=== PATIENT | female | born 1960 | race Hispanic/Latino ===

== ENCOUNTER 2019-08-19 01:29 | Emergency (ER) | payer OTHER ==
[~2019-08-19] VITALS: Ht 157.5 cm; Wt 65.8 kg
--- OUTSIDE RECORDS SUMMARY | 2019-08-19 01:32 | XMS REPORT ---
Author Author [facility] Address Unknown Phone Unavailable Care Team Providers Care Inspector Toys Name Role Phone Unavailable Unavailable Payers Payer Name Policy Type Policy Number Effective Date Expiration Date Problems This patient has no known problems. Allergies, Adverse Reactions, Alerts Allergy Name Allergy Type Status Severity Reaction(s) Onset Date Inactive Date Treating Clinician Comments morphine DA Active [place] 2018-10-20 00:00:00 ANTIBIOTIC DA Active [place] 2018-10-20 00:00:00 ANXIETY MEDICATION DA Active [place] 2018-10-20 00:00:00 No Known Allergies DA Active U 2016-09-27 00:00:00 Medications This patient has no known medications. Encounters Start Date/Time End Date/Time Encounter Type Admission Type Attending Clinicians Care Facility Care Department Encounter ID 2017-05-23 14:27:36 Inpatient [facility] [id number] 2018-05-26 00:00:00 2018-05-26 00:00:00 Outpatient [facility] [id number] 2018-05-20 00:00:00 2018-05-20 00:00:00 Outpatient [facility] [id number] 2018-04-28 00:00:00 2018-04-28 00:00:00 Outpatient [facility] [id number] 2018-03-30 00:00:00 2018-03-30 00:00:00 Outpatient [facility] [id number] 2018-03-24 00:00:00 2018-03-24 00:00:00 Outpatient [facility] [id number] 2018-03-04 00:00:00 2018-03-04 00:00:00 Outpatient [facility] [id number] 2018-02-25 11:11:28 2018-02-25 11:11:28 Outpatient [facility] [id number] 2018-02-25 11:09:54 2018-02-25 11:09:54 Outpatient [facility] [id number] 2018-02-05 00:00:00 2018-02-05 00:00:00 Outpatient [facility] [id number] 2018-02-02 00:00:00 2018-02-02 00:00:00 Outpatient [facility] [id number] 2018-01-05 00:00:00 2018-01-05 00:00:00 Outpatient [facility] [id number] 2017-12-28 12:52:59 2017-12-28 12:52:59 Outpatient [facility] [id number] 2017-12-10 13:54:39 2017-12-10 13:54:39 Outpatient [facility] [id number] 2017-12-09 13:20:08 2017-12-09 13:20:08 Outpatient [facility] [id number] 2017-12-08 00:00:00 2017-12-08 00:00:00 Outpatient [facility] [id number] 2017-12-03 00:00:00 2017-12-03 00:00:00 Outpatient [facility] [id number] 2017-11-23 12:11:51 2017-11-23 12:11:51 Outpatient [facility] [id number] 2017-11-23 00:00:00 2017-11-23 00:00:00 Outpatient [facility] [id number] 2017-10-31 00:00:00 2017-10-31 00:00:00 Outpatient [facility] [id number] 2017-10-29 14:36:02 2017-10-29 14:36:02 Outpatient [facility] [id number] 2017-10-29 13:05:56 2017-10-29 13:05:56 Outpatient [facility] [id number] 2017-10-16 14:44:04 2017-10-16 14:44:04 Outpatient [facility] [id number] 2017-10-15 00:00:00 2017-10-15 00:00:00 Outpatient [facility] [id number] 2017-10-15 00:00:00 2017-10-15 00:00:00 Outpatient [facility] [id number] 2017-10-07 13:42:00 2017-10-07 13:42:00 Outpatient [facility] [id number] 2017-09-09 00:00:00 2017-09-09 00:00:00 Outpatient [facility] [id number] 2017-09-09 00:00:00 2017-09-09 00:00:00 Outpatient [facility] [id number] 2017-09-03 16:56:16 2017-09-03 16:56:16 Outpatient [facility] [id number] 2017-09-03 14:18:12 2017-09-03 14:18:12 Outpatient [facility] [id number] 2017-09-03 13:24:46 2017-09-03 13:24:46 Outpatient [facility] [id number] 2017-09-03 00:00:00 2017-09-03 00:00:00 Outpatient [facility] [id number] 2017-08-31 00:00:00 2017-08-31 00:00:00 Outpatient [facility] [id number] 2017-08-27 12:02:21 2017-08-27 12:02:21 Outpatient [facility] [id number] 2017-08-27 00:00:00 2017-08-27 00:00:00 Outpatient [facility] [id number] 2017-08-24 13:20:59 2017-08-24 13:20:59 Outpatient [facility] [id number] 2017-08-20 00:00:00 2017-08-20 00:00:00 Outpatient [facility] [id number] 2017-08-17 00:00:00 2017-08-17 00:00:00 Outpatient [facility] [id number] 2017-08-14 13:11:49 2017-08-14 13:11:49 Outpatient [facility] [id number] 2017-08-13 00:00:00 2017-08-13 00:00:00 Outpatient [facility] [id number] 2017-08-12 00:00:00 2017-08-12 00:00:00 Outpatient [facility] [id number] 2017-08-05 13:42:36 2017-08-05 13:42:36 Outpatient [facility] [id number] 2017-07-31 00:00:00 2017-07-31 00:00:00 Outpatient [facility] [id number] 2017-07-23 14:17:03 2017-07-23 14:17:03 Outpatient [facility] [id number] 2017-07-23 13:42:44 2017-07-23 13:42:44 Outpatient [facility] [id number] 2017-07-16 15:28:58 2017-07-16 15:28:58 Outpatient [facility] [id number] 2017-07-16 14:46:22 2017-07-16 14:46:22 Outpatient [facility] [id number] 2017-07-16 13:39:17 2017-07-16 13:39:17 Outpatient [facility] [id number] 2017-07-16 00:00:00 2017-07-16 00:00:00 Outpatient [facility] [id number] 2017-07-16 00:00:00 2017-07-16 00:00:00 Outpatient [facility] [id number] 2017-07-10 15:48:25 2017-07-10 15:48:25 Outpatient [facility] [id number] 2017-07-10 14:56:29 2017-07-10 14:56:29 Outpatient [facility] [id number] 2017-06-26 10:54:16 2017-06-26 10:54:16 Outpatient [facility] [id number] 2017-06-19 05:39:49 2017-06-19 05:39:49 Emergency [facility] [id number] 2017-06-18 21:50:25 2017-06-18 21:50:25 Emergency [facility] [id number] 2017-06-16 00:00:00 2017-06-16 00:00:00 Outpatient [facility] [id number] 2017-06-02 11:44:01 2017-06-02 11:44:01 Outpatient [facility] [id number] 2017-05-22 14:18:41 2017-05-22 14:18:41 Outpatient [facility] [id number] 2017-05-22 00:00:00 2017-05-22 00:00:00 Outpatient [facility] [id number] 2017-05-21 00:00:00 2017-05-21 00:00:00 Outpatient [facility] [id number] 2017-05-19 00:00:00 2017-05-19 00:00:00 Outpatient [facility] [id number] 2017-05-18 09:32:35 2017-05-18 09:32:35 Outpatient [facility] [id number] 2017-05-18 08:44:35 2017-05-18 08:44:35 Outpatient [facility] [id number] 2017-05-05 00:00:00 2017-05-05 00:00:00 Outpatient [facility] [id number] 2017-04-30 13:26:56 2017-04-30 13:26:56 Outpatient [facility] [id number] 2017-04-23 00:00:00 2017-04-23 00:00:00 Outpatient [facility] [id number] 2017-04-16 12:59:36 2017-04-16 12:59:36 Outpatient [facility] [id number] 2017-04-16 11:15:13 2017-04-16 11:15:13 Outpatient [facility] [id number] 2017-04-16 11:07:32 2017-04-16 11:07:32 Outpatient [facility] [id number] 2017-04-14 00:00:00 2017-04-14 00:00:00 Outpatient [facility] [id number] 2017-04-14 00:00:00 2017-04-14 00:00:00 Outpatient [facility] [id number] 2017-04-02 13:17:17 2017-04-02 13:17:17 Outpatient [facility] [id number] 2017-03-20 13:01:32 2017-03-20 13:01:32 Outpatient [facility] [id number] 2017-03-19 13:08:53 2017-03-19 13:08:53 Outpatient [facility] [id number] 2017-03-19 12:19:02 2017-03-19 12:19:02 Outpatient [facility] [id number] 2017-03-19 10:09:48 2017-03-19 10:09:48 Outpatient [facility] [id number] 2017-03-19 00:00:00 2017-03-19 00:00:00 Outpatient [facility] [id number] 2017-03-18 14:17:32 2017-03-18 14:17:32 Outpatient [facility] [id number] 2017-03-17 00:00:00 2017-03-17 00:00:00 Outpatient [facility] [id number] 2017-03-04 00:00:00 2017-03-04 00:00:00 Outpatient [facility] [id number] 2017-02-25 00:00:00 2017-02-25 00:00:00 Outpatient [facility] [id number] 2017-02-24 00:00:00 2017-02-24 00:00:00 Outpatient [facility] [id number] 2017-02-19 16:02:51 2017-02-19 16:02:51 Outpatient [facility] [id number] 2017-02-19 14:45:04 2017-02-19 14:45:04 Outpatient [facility] [id number] 2017-02-19 13:21:06 2017-02-19 13:21:06 Outpatient [facility] [id number] 2017-02-12 13:26:06 2017-02-12 13:26:06 Outpatient [facility] [id number] 2017-02-09 09:07:09 2017-02-09 09:07:09 Outpatient [facility] [id number] 2017-02-05 00:00:00 2017-02-05 00:00:00 Outpatient [facility] [id number] 2017-02-03 14:06:43 2017-02-03 14:06:43 Outpatient [facility] [id number] 2017-01-29 08:08:16 2017-01-29 08:08:16 Outpatient [facility] [id number] 2017-01-26 09:51:53 2017-01-26 09:51:53 Outpatient [facility] [id number] 2017-01-16 14:30:20 2017-01-16 00:00:00 Inpatient [facility] [id number] 2017-01-12 14:37:40 2017-01-12 14:37:40 Inpatient [facility] [id number] 2017-01-12 00:00:00 2017-01-12 00:00:00 Outpatient [facility] [id number] 2017-01-08 13:33:08 2017-01-08 13:33:08 Outpatient [facility] [id number] 2017-01-01 00:00:00 2017-01-01 00:00:00 Outpatient [facility] [id number] 2016-12-31 11:40:24 2016-12-31 11:40:24 Outpatient [facility] [id number] 2016-12-31 00:00:00 2016-12-31 00:00:00 Outpatient [facility] [id number] 2016-12-31 00:00:00 2016-12-31 00:00:00 Outpatient [facility] [id number] 2016-12-30 10:09:18 2016-12-30 10:09:18 Outpatient [facility] [id number] 2016-12-30 09:21:27 2016-12-30 09:21:27 Outpatient [facility] [id number] 2016-12-30 00:00:00 2016-12-30 00:00:00 Outpatient [facility] [id number] 2016-12-26 00:00:00 2016-12-26 00:00:00 Outpatient [facility] [id number] 2016-12-22 13:27:17 2016-12-22 13:27:17 Outpatient [facility] [id number] 2016-12-19 15:01:05 2016-12-19 15:01:05 Outpatient [facility] [id number] 2016-12-19 13:59:00 2016-12-19 13:59:00 Outpatient [facility] [id number] 2016-12-19 00:00:00 2016-12-19 00:00:00 Outpatient [facility] [id number] 2016-12-02 14:19:16 2016-12-02 14:19:16 Outpatient [facility] [id number] 2016-11-27 16:19:33 2016-11-27 16:19:33 Outpatient [facility] [id number] 2016-11-27 14:45:14 2016-11-27 14:45:14 Outpatient [facility] [id number] 2016-11-21 00:00:00 2016-11-21 00:00:00 Outpatient [facility] [id number] 2016-11-20 08:43:28 2016-11-20 08:43:28 Outpatient [facility] [id number] Results Test Description Test Time Test Comments Text Results Atomic Results Result Comments BASIC METABOLIC PANEL 2019-01-24 14:45:00 SODIUM (test code=NA) 143 mmol/L 136-145 POTASSIUM (test code=K) 3.8 mmol/L 3.5-5.1 CHLORIDE (test code=CL) 110.0 mmol/L 98-107 CARBON DIOXIDE (test code=CO2) 27.0 mmol/L 21-32 ANION GAP (test code=GAP) 9.8 10-20 GLUCOSE (test code=GLU) 92 mg/dL 74-106 BLOOD UREA NITROGEN (test code=BUN) 10 mg/dL 7-18 GLOMERULAR FILTRATION RATE (test code=GFR) > 60 mL/min >=60 Estimated GFR by using Modified MDRD formula.Chronic kidney disease is defined as either kidney damageor GFR <60 mL/min/1.73 m2 for >3 months. CREATININE (test code=CREAT) 0.70 mg/dL 0.55-1.02 Note change in reference range due to change in reagent. BUN/CREATININE RATIO (test code=BUN/CREA) 14.3 10-20 CALCIUM (test code=CA) 8.8 mg/dL 8.5-10.1 BASIC METABOLIC [id number] 14:25:00* Test Item Value Reference Range Comments SODIUM (test code=NA) 143 mmol/L 136-145 POTASSIUM (test code=K) 3.8 mmol/L 3.5-5.1 CHLORIDE (test code=CL) 110.0 mmol/L 98-107 CARBON DIOXIDE (test code=CO2) mmol/L 21-32 ANION GAP (test code=GAP) 10-20 GLUCOSE (test code=GLU) mg/dL 74-106 BLOOD UREA NITROGEN (test code=BUN) mg/dL 7-18 GLOMERULAR FILTRATION RATE (test code=GFR) mL/min >=60 CREATININE (test code=CREAT) mg/dL 0.55-1.02 BUN/CREATININE RATIO (test code=BUN/CREA) 10-20 CALCIUM (test code=CA) 8.8 mg/dL 8.5-10.1 CBC W/AUTO [id number] 13:46:00* Test Item Value Reference Range Comments WHITE BLOOD CELL (test code=WBC) 6.9 K/mm3 4.5-12.5 RED BLOOD CELL (test code=RBC) 3.84 mill/mm3 3.7-5.2 HEMOGLOBIN (test code=HGB) 11.4 gram/dL 11.5-15.5 HEMATOCRIT (test code=HCT) 35.9 % 36.0-46.0 MEAN CELL VOLUME (test code=MCV) 93.5 fL 80-98 MEAN CELL HGB (test code=MCH) 29.7 picogram 27.0-33.0 MEAN CELL HGB CONCETRATION (test code=MCHC) 31.8 gram/dL 33.0-36.0 RED CELL DISTRIBUTION WIDTH (test code=RDW) 12.8 % 11.6-16.2 RED CELL DISTRIBUTION WIDTH SD (test code=RDW-SD) 43.8 fL 37.0-51.0 PLATELET COUNT (test code=PLT) 278 K/mm3 150-450 MEAN PLATELET VOLUME (test code=MPV) 9.9 fL 6.7-11.0 NEUTROPHIL % (test code=NT%) 67.3 % 39.0-69.0 IMMATURE GRANULOCYTE % (test code=IG%) 1.2 % 0.0-5.0 LYMPHOCYTE % (test code=LY%) 21.0 % 25.0-55.0 MONOCYTE % (test code=MO%) 8.0 % 0.0-10.0 EOSINOPHIL % (test code=EO%) 2.2 % 0.0-5.0 BASOPHIL % (test code=BA%) 0.3 % 0.0-1.0 NUCLEATED RBC % (test code=NRBC%) 0.0 % 0-0 NEUTROPHIL # (test code=NT#) 4.64 K/mm3 1.8-7.7 IMMATURE GRANULOCYTE # (test code=IG#) 0.08 x10 3/uL 0-0.03 LYMPHOCYTE # (test code=LY#) 1.45 K/mm3 1.0-5.0 MONOCYTE # (test code=MO#) 0.55 K/mm3 0-0.8 EOSINOPHIL # (test code=EO#) 0.15 K/mm3 0.0-0.5 BASOPHIL # (test code=BA#) 0.02 K/mm3 0.0-0.2 NUCLEATED RBC # (test code=NRBC#) 0.00 K/mm3 0.0-0.1 BASIC METABOLIC [id number] 12:24:00* Test Item Value Reference Range Comments SODIUM (test code=NA) 144 mmol/L 136-145 POTASSIUM (test code=K) 3.9 mmol/L 3.5-5.1 CHLORIDE (test code=CL) 109.0 mmol/L 98-107 CARBON DIOXIDE (test code=CO2) 29.0 mmol/L 21-32 ANION GAP (test code=GAP) 9.9 10-20 GLUCOSE (test code=GLU) 83 mg/dL 74-106 BLOOD UREA NITROGEN (test code=BUN) 16 mg/dL 7-18 GLOMERULAR FILTRATION RATE (test code=GFR) > 60 mL/min >=60 Estimated GFR by using Modified MDRD formula.Chronic kidney disease is defined as either kidney damageor GFR <60 mL/min/1.73 m2 for >3 months. CREATININE (test code=CREAT) 0.70 mg/dL 0.55-1.02 Note change in reference range due to change in reagent. BUN/CREATININE RATIO (test code=BUN/CREA) 22.9 10-20 CALCIUM (test code=CA) 8.6 mg/dL 8.5-10.1 BASIC METABOLIC [id number] 12:09:00* Test Item Value Reference Range Comments SODIUM (test code=NA) 144 mmol/L 136-145 POTASSIUM (test code=K) 3.9 mmol/L 3.5-5.1 CHLORIDE (test code=CL) 109.0 mmol/L 98-107 CARBON DIOXIDE (test code=CO2) mmol/L 21-32 ANION GAP (test code=GAP) 10-20 GLUCOSE (test code=GLU) mg/dL 74-106 BLOOD UREA NITROGEN (test code=BUN) mg/dL 7-18 GLOMERULAR FILTRATION RATE (test code=GFR) mL/min >=60 CREATININE (test code=CREAT) mg/dL 0.55-1.02 BUN/CREATININE RATIO (test code=BUN/CREA) 10-20 CALCIUM (test code=CA) mg/dL 8.5-10.1 BASIC METABOLIC [id number] 12:39:00* Test Item Value Reference Range Comments SODIUM (test code=NA) 145 mmol/L 136-145 POTASSIUM (test code=K) 3.6 mmol/L 3.5-5.1 CHLORIDE (test code=CL) 112.0 mmol/L 98-107 CARBON DIOXIDE (test code=CO2) 28.0 mmol/L 21-32 ANION GAP (test code=GAP) 8.6 10-20 GLUCOSE (test code=GLU) 85 mg/dL 74-106 BLOOD UREA NITROGEN (test code=BUN) 17 mg/dL 7-18 GLOMERULAR FILTRATION RATE (test code=GFR) > 60 mL/min >=60 Estimated GFR by using Modified MDRD formula.Chronic kidney disease is defined as either kidney damageor GFR <60 mL/min/1.73 m2 for >3 months. CREATININE (test code=CREAT) 0.70 mg/dL 0.55-1.02 Note change in reference range due to change in reagent. BUN/CREATININE RATIO (test code=BUN/CREA) 24.3 10-20 CALCIUM (test code=CA) 8.0 mg/dL 8.5-10.1 CBC W/AUTO [id number] 12:19:00* Test Item Value Reference Range Comments WHITE BLOOD CELL (test code=WBC) 5.8 K/mm3 4.5-12.5 RED BLOOD CELL (test code=RBC) 3.59 mill/mm3 3.7-5.2 HEMOGLOBIN (test code=HGB) 10.8 gram/dL 11.5-15.5 HEMATOCRIT (test code=HCT) 35.0 % 36.0-46.0 MEAN CELL VOLUME (test code=MCV) 97.5 fL 80-98 MEAN CELL HGB (test code=MCH) 30.1 picogram 27.0-33.0 MEAN CELL HGB CONCETRATION (test code=MCHC) 30.9 gram/dL 33.0-36.0 RED CELL DISTRIBUTION WIDTH (test code=RDW) 12.7 % 11.6-16.2 RED CELL DISTRIBUTION WIDTH SD (test code=RDW-SD) 45.5 fL 37.0-51.0 PLATELET COUNT (test code=PLT) 260 K/mm3 150-450 MEAN PLATELET VOLUME (test code=MPV) 10.3 fL 6.7-11.0 NEUTROPHIL % (test code=NT%) 61.5 % 39.0-69.0 IMMATURE GRANULOCYTE % (test code=IG%) 1.2 % 0.0-5.0 LYMPHOCYTE % (test code=LY%) 24.0 % 25.0-55.0 MONOCYTE % (test code=MO%) 8.8 % 0.0-10.0 EOSINOPHIL % (test code=EO%) 4.0 % 0.0-5.0 BASOPHIL % (test code=BA%) 0.5 % 0.0-1.0 NUCLEATED RBC % (test code=NRBC%) 0.0 % 0-0 NEUTROPHIL # (test code=NT#) 3.56 K/mm3 1.8-7.7 IMMATURE GRANULOCYTE # (test code=IG#) 0.07 x10 3/uL 0-0.03 LYMPHOCYTE # (test code=LY#) 1.39 K/mm3 1.0-5.0 MONOCYTE # (test code=MO#) 0.51 K/mm3 0-0.8 EOSINOPHIL # (test code=EO#) 0.23 K/mm3 0.0-0.5 BASOPHIL # (test code=BA#) 0.03 K/mm3 0.0-0.2 NUCLEATED RBC # (test code=NRBC#) 0.00 K/mm3 0.0-0.1 MANUAL DIFF REQUIRED (test code=MDIFF) NO - MRI L-SPINE W/O [id number] 16:00:00 FAX: Dameon Middleton MD [phone] [place]: St: REG Name: [facility] : [birth year] 57 Age/S: 57/F [address] [facility] Unit #: [id number] Loc: [place] [address] Phys: Dameon Desai MD Acct: [id number] Dis Date: Status: REG CLI PHONE #: [phone] Exam Date: 09/15/2018 1546 FAX #: [phone] Reason: LBP,RADIOLUPATHY EXAMS: CPT CODE: [id number] MRI L-SPINE W/O CONT [id number] REASON FOR EXAM: LBP,RADIOLUPATHY Exam Order Date: 09/15/2018 2:45 PM Attending M.D.: Dameon Desai MD Comparison: Procedure: - MRI L-SPINE W/O CONT FINDINGS: Sagittal and axial images of the lumbar spine were obtained in in T1, T2, and proton density with fat saturation. No IV gadolinium was given. The sagittal images show within normal alignment of the lumbar spine. No evidence of diskitis or osteomyelitis. The axial images show no evidence of cord compression. No evidence of narrowing of the neuroforamen. Minimal anterior translation of L4-5 consistent with a grade 1 spondylolisthesis. No evidence of central canal stenosis or narrowing of the neuroforamen The cord is unrema rkable without evidence of intramedullary mass. IMPRESSION: Grade 1 spondylolisthesis of L4-5. at 1600 Reported and signed by: Seven Perez M.D. CC: Dameon Desai MD Technologist: Deep Johnson(R)(MR) Trns crd Date/Time/By: 09/15/2018 (1600) : By: [email or web address] Orig Print D/T: S: 09/15/2018 (4510) PAGE 1 Signed Report
[2019-08-19] MEDS ORDERED: HYDROCODONE/APAP 7.5MG-325MG 1 EA TAB PO ONE (01:45)
[2019-08-19] MEDS ORDERED: HYDROCODONE/APAP 7.5MG-325MG 1 EA TAB ONE (01:52)
--- NOTE | 2019-08-19 03:27 | Diagnostic Imaging Report ---
PELVIS AP 1-2 VIEWS - 3 views HISTORY: Pain status post fall. COMPARISON: None available. FINDINGS: Bones: No acute displaced fracture. Osseous alignment is within normal limits. Joints: Degenerative changes of the SI and hip joints bilaterally. Facet arthropathy at L4-L5 and L5-S1. Soft tissues: Multiple phleboliths within the pelvis. IMPRESSION: No acute osseous abnormality.. Signed by: Dr. Glenn Jung M.D. on 08/19/2019 3:24 AM
--- NOTE | 2019-08-19 03:32 | Diagnostic Imaging Report ---
Left femur 4 views, left knee 3 views, left tibia and fibula or views, and left ankle 3 - views HISTORY: Pain status post fall. COMPARISON: None FINDINGS: Subtle calcific density projected superior to the fibular head may represent enthesopathy versus less likely a small avulsion injury. Otherwise no displaced fracture. Osseous alignment is within normal limits. Suprapatellar joint effusion and soft tissue swelling. IMPRESSION: Suprapatellar joint effusion and swelling. No acute displaced fracture. Subtle calcific density projected superior to the fibular head may represent enthesopathy versus less likely a small avulsion injury. Signed by: Dr. Glenn Jung M.D. on 08/19/2019 3:29 AM
--- NOTE | 2019-08-19 03:33 | Diagnostic Imaging Report ---
KNEE RIGHT THREE VIEWS HISTORY: Pain status post fall. COMPARISON: None available. FINDINGS: Bones: No acute displaced fracture. Osseous alignment is within normal limits. Linear sclerosis in the distal femoral diaphysis, nonspecific. Mild patellar spurring. Joints: Mild degenerative changes of the medial compartment. Soft tissues: Small suprapatellar effusion. IMPRESSION: No acute osseous abnormality. Signed by: Dr. Glenn Jung M.D. on 08/19/2019 3:30 AM
[2019-08-19] MEDS ORDERED: BACITRACIN ZINC 0.9GM TP ONE (03:45)
== END 2019-08-19 04:10 | disposition home or self-care (01) ==
LOC: ER 01:29
DX: S80.02XA Contusion of left knee, initial encounter (principal); S80.01XA Contusion of right knee, initial encounter; S80.212A Abrasion, left knee, initial encounter; S80.211A Abrasion, right knee, initial encounter; W01.0XXA Fall on same level from slipping, tripping and stumbling without subsequent striking against object, initial encounter; Y93.01 Activity, walking, marching and hiking; Y92.410 Unspecified street and highway as the place of occurrence of the external cause; F17.210 Nicotine dependence, cigarettes, uncomplicated; I10 Essential (primary) hypertension; M25.462 Effusion, left knee; M25.572 Pain in left ankle and joints of left foot
CPT/HCPCS: 72170; 99284